=== PATIENT | female | born 1980 | race Caucasian/White ===

== ENCOUNTER → 2018-03-19 | Outpatient (CLI) | payer BC ==
[~2018-03-19] MED LIST: CIPRO500 MG PO; FLAGYL500 MG PO; METHADONE10 MG PO; TORADOL10 MG PO; ZOFRAN ODT4 MG PO
== END | disposition home or self-care (01) ==
LOC: NUC 10:46
DX: R10.9 Unspecified abdominal pain (principal); K81.9 Cholecystitis, unspecified; R11.2 Nausea with vomiting, unspecified
CPT/HCPCS: 78226; A9537